=== PATIENT | female | born 1990 | race Caucasian/White ===

== ENCOUNTER 2019-11-02 01:59 | Inpatient (IN) | payer BC ==
[2019-11-02 02:44] LABS: APPEARANCE,URINE CLOUDY; BILIRUBIN,URINE NEGATIVE (NEGATIVE); COLOR,URINE YELLOW; GLUCOSE, URINE NEGATIVE (NEGATIVE); KETONES,URINE NEGATIVE (NEGATIVE); LEUKOCYTE ESTERASE,URINE LARGE (NEGATIVE); NITRITE,URINE NEGATIVE (NEGATIVE); PROTEIN,URINE NEGATIVE (NEGATIVE); URINE SPECIFIC GRAVITY 1.008; UROBILINOGEN,URINE NEGATIVE mg/dL (<2.0)
[2019-11-02 02:59] LABS: URINE AMPHETAMINES SCREEN NEGATIVE; URINE BARBITURATES SCREEN NEGATIVE; URINE BENZODIAZEPINES SCREEN NEGATIVE; URINE COCAINE SCREEN NEGATIVE; URINE MARIJUANA (THC) SCREEN NEGATIVE; URINE METHADONE SCREEN NEGATIVE; URINE PHENCYCLIDINE SCREEN NEGATIVE
[2019-11-02] MEDS ORDERED: RINGERS SOLUTION,LACTATED 1,000 ML IV ONE (05:38)
[2019-11-02 06:06] LABS: ABSOLUTE BASOPHILS # (AUTO) 0.1 10^3/uL (0.0-0.2); ABSOLUTE EOSINOPHILS # (AUTO) 0.2 10^3/uL (0.0-0.6); ABSOLUTE LYMPHOCYTES (AUTO) 1.9 10^3/uL (0.5-4.7); ABSOLUTE MONOCYTES (AUTO) 0.8 10^3/uL (0.1-1.4); ABSOLUTE NEUT (AUTO) 8.2 10^3/uL (1.7-8.2); BASOPHILS % (AUTO) 0.6 % (0-2); EOSINOPHILS % (AUTO) 1.4 % (0-6); HEMATOCRIT 32.9 % (36.0-47.0); HEMOGLOBIN 11.3 g/dL (12.0-15.5); LYMPHOCYTES % (AUTO) 17.5 % (13-45); MEAN CORPUSCULAR HEMOGLOBIN 30.4 pg (27.0-33.4); MEAN CORPUSCULAR HGB CONC 34.4 g/dL (32.0-36.0); MEAN CORPUSCULAR VOLUME 88 fl (80-97); MONOCYTES % (AUTO) 6.8 % (3-13); PLATELET COUNT 193 10^3/uL (150-450); RED BLOOD COUNT 3.73 10^6/uL (3.72-5.28); RED CELL DISTRIBUTION WIDTH 13.1 % (11.5-14.0); SEGMENTED NEUTROPHILS % (AUTO) 73.7 % (42-78); TOTAL CELLS COUNTED % (AUTO) 100 %; WHITE BLOOD COUNT 11.1 10^3/uL (4.0-10.5)
[2019-11-02] MEDS ORDERED: OXYTOCIN/0.9 % SODIUM CHLORIDE 30 UNIT/500 ML RTUINJ IV PRN ×2 (06:40→17:13)
--- NOTE | 2019-11-02 06:53 | Admission Physical ---
Datetime Report Generated by CPN: 11/02/2019 06:53 CURRENT ADMISSION Chief Complaint: Uterine Contractions; Other Indication for Induction: Not Applicable Admit Impression : Term, Intrauterine Admit Plan: Initiate Labor Protocol ALLERGIES Medication Allergies: No Medication Allergies: No Known Allergies (11/02/2019) Latex: No Latex Allergies OBSTETRICAL HISTORY EDC: 11/08/2019 00:00 : 2 Para: 1 Gestational Diabetes: No Rh Sensitization: No Incompetent Cervix: No MARVEL: No Infertility: No Uterine Anomaly: No IUGR: No Hx Previous C/S: No Macrosomia: No Hx Loss/Stillborn: No PIH: No Hx : No Placenta Previa/Abruption: No Depression/PP Depression: Yes PTL/PROM: No Post Hemorrhage: No Current Procedures: Ultrasound SEE RECORDS Alcohol: No Marijuana : No Cocaine: No Other Illicit Drugs: No Cigarettes: Never Smoker. [id number] PHYSICAL EXAM General: Normal HEENT: Normal Neurologic: Normal Thyroid: Normal Heart: Normal Lungs: Normal Breast: Deferred Back: Normal Abdomen: Normal Genitourinary Exam: Normal Extremities: Normal DTRs: Normal Pelvic Type: Adequate FETUS A EGA: 39.1 PLANS FOR LABOR AND DELIVERY Labor and Delivery: None Pain Management: Epidural Feeding Preference: Breast INFORMED CONSENT Signature: with User ID: [email or web address]
[2019-11-02] MEDS ORDERED: OXYTOCIN/0.9 % SODIUM CHLORIDE 30 UNIT/500 ML RTUINJ ONE (07:09)
[2019-11-02] MEDS ORDERED: LIDOCAINE 1% INJ-PF (10 MG/ML) 30 ML SDV ONE ×2 (07:09→16:46)
[2019-11-02] MEDS ORDERED: MISOPROSTOL 0.2 MG TABLET ONE ×2 (07:09→16:46)
[2019-11-02] MEDS ORDERED: EPHEDRINE SULFATE INJ 50 MG/1 ML AMPULE ONE (10:37)
[2019-11-02] MEDS ORDERED: FENTANYL/BUPIVACAINE/NS/PF 300 MCG/150 ML RTUINJ EPI ONE (10:38)
[2019-11-02] MEDS ORDERED: ROPIVACAINE HCL 0.2% INJ/PF (2 MG/ML) 20 ML SDV ONE (10:38)
[2019-11-02] MEDS: RINGERS SOLUTION,LACTATED 1,000 ML IV PRN ×2 (11:15→13:04)
[2019-11-02] MEDS ORDERED: BUTALB/ACETAMINOPHEN/CAFFEINE 1 TAB EACH ONE (12:02)
[2019-11-02] MEDS ORDERED: BUTALB/ACETAMINOPHEN/CAFFEINE 1 TAB EACH PO ONE (12:05)
[2019-11-02] MEDS ORDERED: FENTANYL CITRATE INJ/PF 100 MCG/2 ML AMPUL ONE (16:17)
--- NOTE | 2019-11-02 16:43 | L&D Progress Notes ---
PROGRESS NOTES Datetime Report Generated by CPN: 11/02/2019 16:43 PROGRESS NOTE Impression: Reassuring Heart Rate Procedures: Sterile Vag Exam Plan: Continue Present Management; Anticipate Vaginal Delivery Comment: Pt very uncomfortable w/ the contractions. Ve 9/90/0 w/ thick lip as well. Pt encouraged to try to breathe thru the contractions. Anticipate soon. LAST VAGINAL EXAM-NURSING Nursing Exam Dilitation: 9.0 Nursing Exam Effacement: thick ant lip Nursing Exam Station: +1/+2 Nursing Exam Contractions: couplets noted MEMBRANES Membranes: Ruptured Amniotic Fluid Color: Clear FETUS A Monitoring: External US Decelerations: None FHR Category: Category I SIGNATURE SIGNATURE: [id number] Assignment: Elisabeth Lowery MD Signature: with User ID: [email or web address] : with User ID: [email or web address]
[2019-11-02] MEDS ORDERED: OXYTOCIN 10 UNIT/ML VIAL ONE (16:46)
[2019-11-02] MEDS ORDERED: METHYLERGONOVINE MALEATE INJ/PF 0.2 MG/1 ML AMPULE ONE (16:47)
[2019-11-02] MEDS ORDERED: PROMETHAZINE HCL 25 MG TABLET PO PRN (17:13)
[2019-11-02] MEDS ORDERED: DIPH/PERTUSS(ACELL)/TETANUS VAC/PF 0.5 ML SYR (>=10YO) IM PRN (17:13)
[2019-11-02] MEDS ORDERED: ZOLPIDEM TARTRATE 5 MG TABLET PO PRN (17:13)
[2019-11-02] MEDS ORDERED: PROMETHAZINE HCL 25 MG SUPP.RECT PR PRN (17:13)
[2019-11-02] MEDS ORDERED: DIBUCAINE 1% OINTMENT 28 GM TP PRN (17:13)
[2019-11-02] MEDS ORDERED: PSEUDOEPHEDRINE HCL 30 MG TABLET PO PRN (17:13)
[2019-11-02] MEDS ORDERED: MAGNESIUM HYDROXIDE SUSP 30 ML UDCUP PO PRN (17:13)
[2019-11-02] MEDS ORDERED: DIPHENHYDRAMINE HCL 25 MG CAPSULE PO PRN (17:13)
[2019-11-02] MEDS ORDERED: MEASLES,MUMPS&RUBELLA VACC/PF 0.5 ML VIAL SUBCUT PRN (17:13)
[2019-11-02] MEDS ORDERED: PROMETHAZINE HCL INJ 25 MG/1 ML VIAL IV PRN (17:13)
[2019-11-02] MEDS ORDERED: BENZOCAINE/MENTHOL AEROSOL SPRAY 56 ML TOP PRN (17:13)
[2019-11-02] MEDS ORDERED: NA PHOS,M-B/NA PHOS,DI-BA (ADULT) 133 ML ENEMA PR PRN (17:13)
[2019-11-02] MEDS ORDERED: ACETAMINOPHEN 650 MG SUPP.RECT PR PRN (17:13)
[2019-11-02] MEDS ORDERED: HYDROMORPHONE HCL INJ/PF 2 MG/ML AMPULE IV ONE (17:15)
[2019-11-02] MEDS ORDERED: HYDROMORPHONE HCL INJ/PF 2 MG/ML AMPULE ONE (17:16)
--- NOTE | 2019-11-02 18:38 | Delivery Summary ---
Del Sum A-C Datetime Report Generated by CPN: 11/02/2019 18:38 DELIVERY PERSONNEL DELIVERY PERSONNEL: [id number] Delivery Doctor:: Bibiana Arce CNM Labor and Delivery Nurse:: Sridevi Castro RN Nursery Nurse:: Yaneth Nickerson RN Endoscopy Specialty Technician/SEWING MACHINE MAINTENANCE MECHANIC: Angélica Love, NETWORK SUPPORT SPECIALIST MATERNAL INFORMATION Delivery Anesthesia: Epidural Medications After Delivery: Pitocin 30 Units in 500ml NS/D5W; Pitocin Drip 20 Units/1000ml NSS; Methergine 0.2mg IM; Other-Please Comment Meds After Delivery Comment: cytotec 200 mcg PO Delivery QBL: 300 Maternal Complications: None Provider Comments: of [facility], delivered STACIE w/ compound presentation of Rt arm. Baby girl bulb suctioned and placed on pts abdoman vigorous and crying. Loose cord around baby's ankle at delivery. Cord clamped and cut after one minute. Cord blood obtained. Placenta S/C/I, ff/ decreased lochia. IV Pitocin infusing, Cytotec 200mcg SL given and IM methergine for slight uterine atony. QBL 300 ml. Perineum intact. Pt plans to breastfeed, mother and baby left in stable condition. Atttending MD is Dr Lowery. LABOR SUMMARY EDC: 11/08/2019 00:00 No. Babies in Womb: 1 Attempted: No Labor Anesthesia: Epidural LABOR INFORMATION Reason for Induction: Other Reason for Induction- Other: advanced dilatation Onset of Labor: 11/02/2019 10:29 Complete Dilatation: 11/02/2019 16:48 Oxytocin: Induction Group B Beta Strep: negative Antibiotics # of Doses: 0 Antibiotics Time of Last Dose: n/a Name of Antibiotic Given: n/a Steroids Given: None Reason Steroids Not Administered: Not Applicable MEMBRANES Membranes Rupture Method: Artificial Rupture of Membranes: 11/02/2019 10:29 Length of Rupture (hr): 6.48 Amniotic Fluid Color: Clear Amniotic Fluid Amount: Large Amniotic Fluid Odor: Normal STAGES OF LABOR Stage 1 hr: 6 Stage 1 min: 19 Stage 2 hr: 0 Stage 2 min: 10 Stage 3 hr: 0 Stage 3 min: 5 Total Time in Labor hr: 6 Total Time in Labor min: 34 VAGINAL DELIVERY Episiotomy: None Laceration #1: None Laceration Extension #1: N/A Laceration Repair: Not Applicable Sponge Count Correct: Yes Sharps Count Correct: Yes CSECTION DELIVERY Primary Indication: N/A Secondary Indication: N/A CSection Incidence: N/A Labor: N/A Elective: N/A CSection Incision: N/A BABY A INFORMATION Delivery Date/Time: 11/02/2019 16:58 Method of Delivery: Vaginal Nurse Controlled Delivery: No Born in Route : No : N/A Forceps: N/A Vacuum Extraction: N/A Shoulder Dystocia : No PRESENTATION/POSITION BABY A Presentation: Cephalic Cephalic Presentation: Vertex Vertex Position: Left Occipital Anterior Breech Presentation: N/A PLACENTA INFORMATION BABY A Placenta Delivery Time : 11/02/2019 17:03 Placenta Method of Delivery: Spontaneous Placenta Status: Delivered SCORES BABY A Heart Rate 1 min: >100 bpm Resp Effort 1 min: Slow, Irregular Reflex Irritability 1 min: Cough or Sneeze or Pulls Away Muscle Tone 1 min: Active Motion Color 1 min: Blue/Pale Resuscitation Effort 1 min: Tactile Stimulation SCORE 1 MIN: 7 Heart Rate 5 min: >100 bpm Resp Effort 5 min: Good Cry Reflex Irritability 5 min: Cough or Sneeze or Pulls Away Muscle Tone 5 min: Active Motion Color 5 min: Body [place], Extremities Blue Resuscitation Effort 5 min: Tactile Stimulation SCORE 5 MIN: 9 INFORMATION BABY A Gestational Age at Delivery: 39.1 Gestational Status: Full Term- 39- 40.6 Weeks Outcome : Liveborn Infant Condition : Stable Infant Sex: Female IDENTIFICATION BABY A Verification Date/Time: 11/02/2019 16:58 ID Band Number: [id number] Mother's Name Verified: Yes RN Verifying : B Baidy RN Additional Verifying Personnel: R Chaitanyaev RN WEIGHT/LENGTH BABY A Infant Birthweight (gm): 3610 Infant Weight (lb): 7 Infant Weight (oz): 15 Infant Length (in): 20.00 Length (cm): 50.80 CORD INFORMATION BABY A No. Cord Vessels: 3 Nuchal Cord : N/A Cord Blood Taken: Yes-For Storage (Mom's Blood type +) Infant Suction: Mouth; Nose ASSESSMENT BABY A Complications: None Physical Findings at Delivery: Bruising Infant Respirations: Appears Normal Skin to Skin: Yes Skin to Skin Time (min): 60 Rfid Technician/ALS Called : No Care By: Chago Nickerson RN Transferred To: Remains with Mother BABY B INFORMATION : N/A SIGNATURES Assignment: Elisabeth Lowery MD Signature: with User ID: [email or web address] : with User ID: [email or web address]
[2019-11-02] MEDS: DOCUSATE SODIUM 100 MG CAPSULE PO SCH (19:16)
[2019-11-02] MEDS ORDERED: IBUPROFEN 800 MG TABLET ONE (19:17)
[2019-11-02] MEDS: IBUPROFEN 800 MG TABLET PO SCH (19:21)
[2019-11-02] MEDS: GLYCERIN/WITCH HAZEL LEAF 1 EACH MED..WIPE TP PRN (20:43)
[2019-11-02] MEDS: FAMOTIDINE 20 MG TABLET PO SCH (22:24)
[2019-11-03] MEDS: IBUPROFEN 800 MG TABLET PO SCH ×3 (05:29→22:12)
[2019-11-03] MEDS: ACETAMINOPHEN WITH CODEINE #3 TABLET PO PRN ×4 (06:21→22:15)
[2019-11-03 07:13] LABS: HEMATOCRIT 30.6 % (36.0-47.0); HEMOGLOBIN 10.5 g/dL (12.0-15.5); MEAN CORPUSCULAR HEMOGLOBIN 30.6 pg (27.0-33.4); MEAN CORPUSCULAR HGB CONC 34.4 g/dL (32.0-36.0); MEAN CORPUSCULAR VOLUME 89 fl (80-97); PLATELET COUNT 182 10^3/uL (150-450); RED BLOOD COUNT 3.43 10^6/uL (3.72-5.28); RED CELL DISTRIBUTION WIDTH 12.6 % (11.5-14.0); WHITE BLOOD COUNT 12.1 10^3/uL (4.0-10.5)
[2019-11-03] MEDS: GLYCERIN/WITCH HAZEL LEAF 1 EACH MED..WIPE TP PRN ×2 (08:41→17:44)
[2019-11-03] MEDS: SENNOSIDES/DOCUSATE 8.6-50 MG 1 EACH TABLET PO SCH (09:19)
[2019-11-03] MEDS: FAMOTIDINE 20 MG TABLET PO SCH ×2 (09:19→22:12)
[2019-11-03] MEDS: FERROUS SULFATE 325 MG TABLET PO SCH (09:19)
[2019-11-03] MEDS: PRENATAL VITAMIN W DHA CAPSULE PO SCH (09:19)
[2019-11-03] MEDS: DOCUSATE SODIUM 100 MG CAPSULE PO SCH ×2 (09:19→17:44)
[2019-11-03] MEDS ORDERED: SERTRALINE HCL 50 MG TABLET PO SCH (10:00)
--- NOTE | 2019-11-03 10:03 | PDOC PROGRESS REPORT ---
Subjective-OB Progress Note for:: 11/03/19 - PP Day #1, doing well, breast feeding, UOB voiding Subjective: denies headache. s/p bloodpatch for wet tap from epidural Physical Exam (OB) Vital Signs: Temp Pulse Resp BP Pulse Ox 97.8 F 87 18 107/68 95 11/03/19 07:33 11/03/19 07:33 11/03/19 07:33 11/03/19 07:33 11/03/19 07:33 Intake & Output 11/02/19 11/03/19 11/04/19 06:59 06:59 06:59 Intake Total 225 Balance 225 Weight 86.5 kg - General General Appearance: Appears well, Alert In distress: None - PIH/Pre-Eclampsia Visual Changes: No - Lochia Lochia Amount: Scant < 10 ml Lochia Color: Rubra/Red - Abdomen Description: Soft Hernia Present: No Fundal Description: Firm, Midline Fundal Height: u/3 - u/4 - Respiratory Respiratory Status: No respiratory distress - Abdominal Distension: No distension Tenderness: Nontender - Genitourinary Genitourinary Note: voiding - Extremities Upper extremity: Normal inspection Lower extremities: Normal inspection - Neurological Cognition: Normal Orientation: AAOx4 - Psychological Associated symptoms: Normal affect - Skin Skin Temperature: Warm Skin Moisture: Dry Objective-Diagnostic Laboratory: 11/03/19 06:16 11/03/19 06:16 WBC 12.1 H RBC 3.43 L Hgb 10.5 L Hct 30.6 L MCV 89 MCH 30.6 MCHC 34.4 RDW 12.6 Plt Count 182 Assessment and Plan(PN) - Assessment and Plan (1) (normal spontaneous vaginal delivery) Is this a current diagnosis for this admission?: Yes Plan: ambulation encouraged, Routine PP orders - Time Spent with Patient Time with patient: Less than 15 minutes Medications reviewed and adjusted accordingly: Yes - Disposition Anticipated Discharge: Home Anticipated DC Timeframe: within 24 hours
[2019-11-04] MEDS: IBUPROFEN 800 MG TABLET PO SCH (06:02)
--- NOTE | 2019-11-04 09:53 | PDOC DISCHARGE SUMMARY ---
Impression - Admit/DC Date/PCP Admission Date/Primary Care Provider: 11/02/19 05:41 MELINDA GONSALVES MD Discharge Date: 11/04/19 - PP Day #2., doing well, UOB, voiding, no complaints w/ ambulation. A+, rubella Immune. - Discharge Diagnosis (1) (normal spontaneous vaginal delivery) Is this a current diagnosis for this admission?: Yes (2) Normal course Is this a current diagnosis for this admission?: Yes - Additional Information Resuscitation Status: Full Code Discharge Diet: As Tolerated, Regular Discharge Activity: Activity As Tolerated, No Lifting Over 10 Pounds, Pelvic Rest Referrals: MELINDA GONSALVES MD [Primary Care Provider] - Prescriptions: Mupirocin [Bactroban 2% Ointment 22 gm] 1 applic TP TID #1 tube Ibuprofen [Motrin 800 mg Tablet] 800 mg PO Q8 #60 tablet Home Medications: Prenat 115/Iron Fum/Folic/Dss [ 19 Tablet] 1 tab PO DAILY 11/02/19 Sertraline HCl [Zoloft 50 mg Tablet] 1.5 tab PO DAILY 11/02/19 Ibuprofen [Motrin 800 mg Tablet] 800 mg PO Q8 #60 tablet 11/04/19 Mupirocin [Bactroban 2% Ointment 22 gm] 1 applic TP TID #1 tube 11/04/19 HPI Reason(s) for Admission: Onset of Labor Procedures: Ultrasound Intrapartum Procedure(s): Spontaneous Vaginal Delivery Results Laboratory Results: WBC 12.1 10^3/uL (4.0-10.5) H 11/03/19 06:16 RBC 3.43 10^6/uL (3.72-5.28) L 11/03/19 06:16 Hgb 10.5 g/dL (12.0-15.5) L 11/03/19 06:16 Hct 30.6 % (36.0-47.0) L 11/03/19 06:16 MCV 89 fl (80-97) 11/03/19 06:16 MCH 30.6 pg (27.0-33.4) 11/03/19 06:16 MCHC 34.4 g/dL (32.0-36.0) 11/03/19 06:16 RDW 12.6 % (11.5-14.0) 11/03/19 06:16 Plt Count 182 10^3/uL (150-450) 11/03/19 06:16 Lymph % (Auto) 17.5 % (13-45) 11/02/19 05:51 [place] % (Auto) 6.8 % (3-13) 11/02/19 05:51 Eos % (Auto) 1.4 % (0-6) 11/02/19 05:51 Baso % (Auto) 0.6 % (0-2) 11/02/19 05:51 Absolute Neuts (auto) 8.2 10^3/uL (1.7-8.2) 11/02/19 05:51 Absolute Lymphs (auto) 1.9 10^3/uL (0.5-4.7) 11/02/19 05:51 Absolute Monos (auto) 0.8 10^3/uL (0.1-1.4) 11/02/19 05:51 Absolute Eos (auto) 0.2 10^3/uL (0.0-0.6) 11/02/19 05:51 Absolute Basos (auto) 0.1 10^3/uL (0.0-0.2) 11/02/19 05:51 Seg Neutrophils % 73.7 % (42-78) 11/02/19 05:51 Urine Color YELLOW 11/02/19 02:10 Urine Appearance CLOUDY 11/02/19 02:10 Urine pH 7.0 (5.0-9.0) 11/02/19 02:10 Ur Specific [place] 1.008 11/02/19 02:10 Urine Protein NEGATIVE mg/dL (NEGATIVE) 11/02/19 02:10 Urine Glucose (UA) NEGATIVE mg/dL (NEGATIVE) 11/02/19 02:10 Urine Ketones NEGATIVE mg/dL (NEGATIVE) 11/02/19 02:10 Urine Blood SMALL (NEGATIVE) H 11/02/19 02:10 Urine Nitrite NEGATIVE (NEGATIVE) 11/02/19 02:10 Urine Bilirubin NEGATIVE (NEGATIVE) 11/02/19 02:10 Urine Urobilinogen NEGATIVE mg/dL (<2.0) 11/02/19 02:10 Ur Leukocyte Esterase LARGE (NEGATIVE) H 11/02/19 02:10 Urine Ascorbic Acid NEGATIVE (NEGATIVE) 11/02/19 02:10 Urine Opiates Screen NEGATIVE 11/02/19 02:10 Urine Methadone Screen NEGATIVE 11/02/19 02:10 Ur Barbiturates Screen NEGATIVE 11/02/19 02:10 Ur Phencyclidine Scrn NEGATIVE 11/02/19 02:10 Ur Amphetamines Screen NEGATIVE 11/02/19 02:10 U Benzodiazepines Scrn NEGATIVE 11/02/19 02:10 Urine Cocaine Screen NEGATIVE 11/02/19 02:10 U Marijuana (THC) Screen NEGATIVE 11/02/19 02:10 RPR NONREACTIVE (NONREACTIVE) 11/02/19 05:51 Blood Type A POSITIVE 11/02/19 05:51 Antibody Screen NEGATIVE 11/02/19 05:51 Plan Plan of Treatment: d/c home, follow up with [facility] in 4 wks Time Spent: Less than 30 Minutes
[2019-11-04] MEDS: PRENATAL VITAMIN W DHA CAPSULE PO SCH (09:56)
[2019-11-04] MEDS: SENNOSIDES/DOCUSATE 8.6-50 MG 1 EACH TABLET PO SCH (09:56)
[2019-11-04] MEDS: FERROUS SULFATE 325 MG TABLET PO SCH (09:56)
[2019-11-04] MEDS: FAMOTIDINE 20 MG TABLET PO SCH (09:57)
[2019-11-04] MEDS: DOCUSATE SODIUM 100 MG CAPSULE PO SCH (09:57)
[2019-11-04 10:08] VITALS: BP 116/85
== END 2019-11-04 10:40 | disposition home or self-care (01) | DRG 807 ==
LOC: LC 01:59 → LR 05:41 → 2S 20:12
PROVIDERS: ADMIT Obstetrics & Gynecology Gynecology; ATTEND Obstetrics & Gynecology Gynecology
PROC: 10E0XZZ Delivery of Products of Conception, External Approach (ICD-10-PCS; principal; 2019-11-02)
PROC: 10907ZC Drainage of Amniotic Fluid, Therapeutic from Products of Conception, Via Natural or Artificial Opening (ICD-10-PCS; 2019-11-02)
DX: O69.2XX0 Labor and delivery complicated by other cord entanglement, with compression, not applicable or unspecified (principal); Z37.0 Single live birth; O32.6XX0 Maternal care for compound presentation, not applicable or unspecified; O62.2 Other uterine inertia; Z3A.39 39 weeks gestation of pregnancy
CPT/HCPCS: 1967; 36415; 59025; 80307; 81005; 85025; 85027; 86592; 86850; 86900; 86901; 94760; C1758; J1170; J2210; J2590; J2795; J3010; J3490